=== PATIENT | female | born 1935 | race Caucasian/White ===

== ENCOUNTER 2017-02-19 12:12 | Outpatient (CLI) | payer MEDICARE ==
--- NOTE | 2017-02-19 14:00 | RAD ---
CHEST TWO VIEWS: HISTORY: Dyspneic. FINDINGS: There are chronic interstitial changes throughout the lungs. No pneumothorax or effusion. Mild calcification of the aorta. IMPRESSION: Findings suggestive of interstitial lung disease. Atypical pneumonia cannot be excluded. Follow-up CT of the chest may be beneficial. POS: [facility]
== END 2017-02-19 12:13 | disposition home or self-care (01) ==
LOC: RAD 12:12
PROVIDERS: ATTEND Internal Medicine Pulmonary Disease
DX: R06.00 Dyspnea, unspecified (principal); J18.9 Pneumonia, unspecified organism
CPT/HCPCS: 71020

== ENCOUNTER 2017-03-28 11:54 | Outpatient (CLI) | payer MEDICARE ==
--- NOTE | 2017-03-28 16:27 | CT ---
CT CHEST WITHOUT CONTRAST HIGH RESOLUTION 03/28/17 HISTORY: Interstitial lung disease. Pulmonary fibrosis, J48.10. COMPARISON: CTA of 08/11/14. FINDINGS: There are multiple areas of ground glass opacification contained to secondary pulmonary lobules. Ther e is subpleural reticulation predominantly in the upper lobes also involving the lower lobes. No dee ycombing destruction of the lung parenchyma. There is extensive traction bronchiectasis. There are nu merous mildly prominent prevascular, AP window, and peritracheal lymph nodes. Relative to the compari son CT examination, these are similar from 2015. There is a calcified mass in the left lobe of the liver. Moderate calcifications of the aorta. Small sliding hiatal hernia. IMPRESSION: The lung parenchymal findings are suggestive of fibrotic nonspecific interstitial pneumonitis. Findin gs have progressed since 2015 examination. POS: OFF
== END 2017-03-28 11:55 | disposition home or self-care (01) ==
LOC: CT 11:54
PROVIDERS: ATTEND Internal Medicine Pulmonary Disease
DX: J84.10 Pulmonary fibrosis, unspecified (principal); R91.8 Other nonspecific abnormal finding of lung field
CPT/HCPCS: 71250; 94060; 94727; 94729

== ENCOUNTER 2017-04-13 08:01 | Emergency (ER) | payer MEDICARE ==
[2017-04-13] MEDS ORDERED: Ondansetron HCl/PF 4 MG/2 ML Vial ONE (09:19)
[2017-04-13] MEDS ORDERED: Pantoprazole 40 MG VIAL ONE (09:19)
[2017-04-13 09:37] LABS: #Basophils 0.1 thou/uL (0.0-0.2); #Eosinphils 0.2 thou/uL (0.0-0.7); #Lymphocytes 0.4 thou/uL (1.20-3.40); #Monocytes 0.9 thou/uL (0.11-0.59); #Neutrophils 7.4 thou/uL (1.40-6.50); %Basophils 0.6 % (0.0-1.0); %Eosinophils 2.1 % (0.0-10.0); %Neutrophils 82.3 % (42.0-75.0); Hemoglobin 11.4 g/dL (12.0-16.0); Mean Corpuscular HGB CONC 32.1 g/dL (32.0-36.0); Mean Corpuscular Volume 90.4 fl (81.0-99.0); Mean Platelet Volume 6.7 fL (7.4-10.4); Platelet Count 305 thou/uL (130-400); RBC Distribution Width 14.7 % (11.5-14.5); Red Blood Cell (RBC) Count 3.93 mill/uL (4.20-5.40)
[2017-04-13 09:58] LABS: ALT (SGPT) 13 U/L (8-55); AST (SGOT) 26 U/L (5-34); Albumin 3.6 g/dL (3.4-4.8); Alkaline Phosphatase 51 U/L (40-150); Anion Gap 13 mmol/L (10-20); BUN (Urea Nitrogen) 14 mg/dL (9.8-20.1); Bilirubin, Total 0.6 mg/dL (0.2-1.2); CK (CPK) 29 U/L (29-168); Calc. Creatinine Clearance 0 mL/min (70-130); Calcium 9.5 mg/dL (7.8-10.44); Carbon Dioxide 26 mmol/L (23-31); Chloride 103 mmol/L (98-107); Estimated GFR-MDRD 55; Globulin 3.8 g/dL (2.4-3.5); Glucose 103 mg/dL (83-110); Lipase Less than 4 U/L (8-78); Potassium 4.2 mmol/L (3.5-5.1); Protein, Total 7.4 g/dL (6.0-8.3); Sodium 138 mmol/L (136-145)
[2017-04-13 10:02] LABS: CKMB 1.1 ng/mL (0-6.6); Troponin I 0.014 ng/mL (< 0.028)
[2017-04-13] MEDS ORDERED: Ibuprofen 200 MG TAB ONE (11:00)
[2017-04-13 12:00] LABS: Bilirubin Negative (Negative); Blood, Urine Negative (Negative); Clarity CLEAR (Clear); Glucose, Urine (Dipstick) Negative (Negative); Leukocyte Negative (Negative); Nitrite Negative (Negative); Protein, Urine (Dipstick) Negative (Neg-Trace); Specific Gravity, Urine 1.028 (1.002-1.036); Urobilinogen 0.2 mg/dL (0.2-1.0); pH, Urine 5.5 (5.0-9.0)
--- NOTE | 2017-04-27 20:20 | EKG ---
Test Reason : ER INDICATION Blood Pressure : / mmHG Vent. Rate : 086 BPM Atrial Rate : 086 BPM P-R Int : 216 ms QRS Dur : 080 ms QT Int : 388 ms P-R-T Axes : 060 069 001 degrees QTc Int : 464 ms Sinus rhythm with 1st degree A-V block with Premature atrial complexes Nonspecific ST abnormality Abnormal ECG Confirmed by JUDITH HARMON, LINDSEY ([id number]), editor map THI GARNICA ([id number]) on 04/27/2017 8:20:27 PM Referred By: Confirmed By:LINDSEY WONG MD
== END 2017-04-13 13:14 | disposition home or self-care (01) ==
LOC: ERS 08:01
DX: R11.2 Nausea with vomiting, unspecified (principal); I48.91 Unspecified atrial fibrillation; E78.5 Hyperlipidemia, unspecified; I10 Essential (primary) hypertension; Z79.899 Other long term (current) drug therapy
CPT/HCPCS: 36415; 80053; 81003; 82550; 82553; 83690; 84484; 85025; 87804; 93005; 94760; 96361; 96374; 96375; C9113; J2405